=== PATIENT | female | born 1985 | race Caucasian/White ===

== ENCOUNTER 2017-01-30 21:00 | Emergency (ER) | payer OTHER ==
[~2017-01-30] VITALS: Ht 175.3 cm; Wt 158.8 kg
[~2017-01-30 21:00] MED LIST: AMITRIPTYLINE25 MG PO; AMOXICOT500 MG PO; APAP/BUTALBITAL1 TA1 PO; AVPAK AZITHROM250 MG PO; BACTRIM DS 8001 TAB PO; BENTYL20 MG PO; CELEXA40 MG PO; CIPRO 500MG TA500 MG PO; FLEXERIL10 MG PO; FLOVENT 44M13 GM/BOT IN; IBU800 M1 PO; KEFLEX 500MG.500 MG PO; MEDROL 4MG. DOSE4 MG PO; METOPROLOL SUCC25 M2 PO; MUCINEX600 MG PO; MULTI VITAMINS1 TA1 PO; Monodox100 MG PO; NAPROXEN SODIU500 MG PO; NOMEDS *; ORTHO TRI-CYCLE1 TA1 PO; PHENERGAN 25MG.25 M1 PO; PREDNISONE 10MG10 MG PO; PREDNISONE 20MG20 MG PO; PROMETHAZINE D120 ML PO; ROBAXIN-750750 MG PO; TESSALON PERLE100 M1 PO; TESSALON PERLE100 MG PO; ULTRAM 50 MG TA50 MG PO; VENTOLIN H0.09 MG/Ac IH; VICODIN 5/500 T1 TAB PO; VOLTAREN75 MG PO; ZESTRIL5 MG PO; ZITHROMAX Z PA250 MG PO; ZITHROMAX Z-PA250 M1 PO; ZYRTEC10 M2 PO
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
[2017-01-30 21:56] VITALS: BP 125/82
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
--- OUTSIDE RECORDS SUMMARY | 2017-02-02 18:42 | External Medical Summary Rpt ---
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 [address] [facility] T VISIT LOW/MODER SEVERITY HOSPITAL JOSE F - [address] [facility] INC T EMERGENCY 36352 JORDAN ESTEVEZ 6 6 PHYSICIAN LAKESHA Tapia [facility] T VISIT MODERATE SEVERITY EMERGENCY 01675 JOSE F 6 6 [facility] DEPARTMEN INC T VISIT LOW/MODER SEVERITY EMERGENCY 12262 [facility] DEPT 6 6 REGIONAL ADA VISIT HIGH EMERGENCY SEVERITY& THREAT FUNCJ EMERGENCY 34561 EDEN JUPITER SVEN 5 5 REGIONAL DEPARTMEN T VISIT EMERGENCY HIGH/URGE NT SEVERITY OFFICE 49521 [facility], АННА OUTPATIEN 5 5 ASTHMA & JAM T VISIT IMMUNOLOG 15 Y MINUTES OFFICE 34406 [facility] [place] OUTPATIEN 5 5 PHYSICIAN EUG T VISIT S GROUP 15 MINUTES OFFICE 84598 [facility] [place] OUTPATIEN 5 5 PHYSICIAN MARÍA T VISIT S GROUP 15 MINUTES OFFICE 61013 [facility] RUPINDER OUTPATIEN 5 5 PHYSICIAN LUCY T VISIT S GROUP 15 MINUTES OFFICE 00401 [facility] [place] OUTPATIEN 4 4 PHYSICIAN EUG T VISIT S GROUP 15 MINUTES PERIODIC 75051 [facility] PREVENTIV 4 4 PHYSICIAN E MED EST S GROUP PATIENT 18-39 YRS HOSPITAL JOSE F - 4 4 [facility] OUT[facility]EN [facility] JOSE F - 4 4 [facility] JOSE F - 4 4 [facility] JOSE F [facility] 4 4 [facility] OUTPATIEN [facility] OFFICE 79073 [facility] RUPINDER OUTPATIEN 4 4 PHYSICIAN LUCY T NEW 45 S GROUP MINUTES EMERGENCY 77535 [facility] DEPT 4 4 RACHEL LUCY VISIT EMERGENCY HIGH PHYS SEVERITY& THREAT FUNJ Emergency GERHARD Moran MD (ER) 3 13:32 3 14:[address] [facility] Emergency GERHARD Amado MD (ER) 3 22:07 3 22:37 [facility] JOSE F - 3 3 [facility] OUTPATIEN [facility] T EMERGENCY 84371 JOSE F 3 3 [facility] INC T VISIT LOW/MODER SEVERITY EMERGENCY 40273 NATAN GAMA 3 3 III CALEB III [facility] T VISIT HIGH/URGE NT SEVERITY EMERGENCY 04911 RUPINDER AMADO 2 2 [facility] HIGH/URGE NT SEVERITY EMERGENCY 69455 JOSE F 2 2 [facility] T VISIT LOW/MODER SEVERITY HOSPITAL JOSE F - 2 2 [facility] OUTPATIEN [facility] JOSE F - 2 2 [facility] JOSE F [facility] 2 2 [facility] T EMERGENCY 77280 NATAN GAMA 2 2 III CALEB III [facility] T VISIT HIGH/URGE NT SEVERITY EMERGENCY 66421 JOSE F 2 2 [facility] T VISIT LOW/MODER SEVERITY HOSPITAL JOSE F - 2 2 [facility] T EMERGENCY 59695 NATAN GAMA 2 2 III CALEB III [facility] T VISIT HIGH/URGE NT SEVERITY EMERGENCY 49541 JOSE F 2 2 [facility] INC T VISIT MODERATE SEVERITY EMERGENCY 96269 HESHAM NICE 2 2 EMERGENCY [facility] SERVICES T VISIT MODERATE SEVERITY EMERGENCY 74767 JOSE F 2 2 [facility] T VISIT LIMITED/M INOR PROB HOSPITAL JOSE F - 2 2 [facility] OUTPATIEN [facility] T HOSPITAL JOSE F - 2 2 [facility] OUTPATIEN [facility] T EMERGENCY 09468 JOSE F 2 2 [facility]PART[facility] INC T VISIT LOW/MODER SEVERITY EMERGENCY 08360 NATAN GAMA 2 2 III CAL[facility] III [facility] DEPARTMEN T VISIT HIGH/URGE NT SEVERITY OFFICE 21870 CHARLIE GUERRA OUTPATIEN 2 2 LORETO LORETO T VISIT 15 MINUTES OFFICE 67725 JOSE F KOHLER OUTPATIEN 2 2 [facility] CENTER 15 MINUTES EMERGENCY 95933 JOSE F 2 2 [facility] DEPART[facility] INC T VISIT LOW/MODER SEVERITY EMERGENCY 27005 RUPINDER AMADO 2 2 [facility] DEPARTMEN T VISIT HIGH/URGE NT SEVERITY HOSPITAL JOSE F - 2 2 [facility] T HOSPITAL JOSE F - 2 2 [facility] OUT[facility]EN INC T EMERGENCY 56112 NATAN GAMA 2 2 III [facility] III [facility] DEPARTMEN T VISIT MODERATE SEVERITY EMERGENCY 03174 JOSE F 2 2 [facility] INC T VISIT LOW/MODER SEVERITY OFFICE 50027 JOSE F KOHLER OUTPATIEN 2 2 [facility] CENTER 15 MINUTES HOSPITAL JOSE F - 2 2 [facility] OUTPATIEN INC T EMERGENCY 12930 JOSE F 2 2 [facility] DEPARTMEN INC T VISIT MODERATE SEVERITY HOSPITAL JOSE F - 2 2 [facility] OUTPATIEN INC T EMERGENCY 04525 NATAN GAMA DEPT 2 2 III CAL[facility] III [facility] VISIT HIGH SEVERITY& THREAT [facility] JOSE F - 2 2 [facility] OUTPAT[facility] INC T EMERGENCY 94436 HESHAM AMADO, 0 0 EMERGENCY [facility] SERVICES T 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 S EMERGENCY 05700 JOSE F 0 0 [facility] DEPART[facility] INC T VISIT MODERATE SEVERITY HOSPITAL JOSE F - 0 0 [facility] OUTPATIEN INC T EMERGENCY 35378 HESHAM AMADO, 0 0 EMERGENCY [facility] SERVICES T VISIT HIGH/URGE ASSOCIATE NT S SEVERITY EMERGENCY 77500 JOSE F 0 0 [facility] INC T VISIT LOW/MODER SEVERITY HOSPITAL JOSE F - [address] [facility] T EMERGENCY 55477 JOSE F 0 0 [facility] DEPARTMEN INC T VISIT LOW/MODER SEVERITY EMERGENCY 79562 HESHAM AMADO, 0 0 EMERGENCY [facility] SERVICES T VISIT HIGH/URGE ASSOCIATE NT S SEVERITY HOSPITAL JOSE F - 0 0 [facility] INC T HOSPITAL JOSE F - [address] [facility] T HOSPITAL JOSE F - [address] [facility] T HOSPITAL JOSE F - 9 9 [facility] OUTPAT[facility]EN [facility] T EMERGENCY 34667 HESHAM AMADO, 9 9 EMERGENCY [facility] SERVICES T 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 S EMERGENCY 48413 JOSE F [address] [facility] T VISIT LOW/MODER SEVERITY EMERGENCY 30845 JOSE F [address] [facility] T VISIT LIMITED/M [facility]OR [facility]OB [facility] JOSE F - 9 9 [facility] OUTPAT[facility] INC T EMERGENCY 56382 SHAGUFTA AMADO, 9 9 [facility] T VISIT ON LOW/MODER SEVERITY EMERGENCY 60825 JOSE F 8 8 [facility] DE[facility] INC T VISIT HIGH/URGE NT SEVERITY HOSPITAL JOSE F - [address] [facility] T OFFICE 21683 SIOMARA STEWARD 8 8 [facility] A T VISIT INTERNAL 25 MED MINUTES EMERGENCY 83448 JOSE F 8 8 [facility] T VISIT MODERATE SEVERITY HOSPITAL JOSE F 8 8 [facility] OUTPATIEN [facility] T OFFICE 53453 SIOMARA STEWARD 8 8 JONATHAN Webb T VISIT INTERNAL 15 MED MINUTES
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
--- OUTSIDE RECORDS SUMMARY | 2017-02-02 18:46 | External Medical Summary Rpt ---
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 15 MED MINUTES
--- OUTSIDE RECORDS SUMMARY | 2017-02-02 18:46 | External Medical Summary Rpt ---
Demographics Preferred Language German Marital Status Unknown Zoroastrian Affiliation Unknown Race Unknown Ethnic Group Unknown Author Author , MARIBELL COMBS Address Unknown Phone Immunization Unable to retrieve immunization data due to connection failure with Immunization Registry. Please try again later.
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
--- OUTSIDE RECORDS SUMMARY | 2017-02-02 18:46 | External Medical Summary Rpt ---
Demographics Preferred Language Gibraltarian Marital Status Unknown Jain Affiliation Unknown Race Unknown Ethnic Group Unknown Author Author , MARIBELL COMBS Address Unknown Phone Immunization Unable to retrieve immunization data due to connection failure with Immunization Registry. Please try again later.
--- OUTSIDE RECORDS SUMMARY | 2017-02-02 18:47 | External Medical Summary Rpt ---
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 data Monocyt 5.4 4.4 - % Normal No Jul 24 es (%) 11.0 informa 2015 (Auto) tion in 3:35 PM source data Eosinop 4.3 0.0 - % Normal No Jul 24 hils 5.8 informa 2016 (%) tion in 3:35 PM (Auto) source data Basophi 0.7 0 - 1.6 % Normal No Jul 24 ls (%) informa 2015 (Auto) tion in 3:35 PM source data Neutrop 5.6 1.8 - X_10_3 Normal No Jul 24 hils # 7.0 informa 2016 (Auto) tion in 3:35 PM source data Lymphoc 2.5 1.0 - X_10_3 Normal No Jul 24 ytes # 3.3 informa 2016 (Auto) tion in 3:35 PM source data Monocyt 0.5 0.3 - X_10_3 Normal No Jul 24 es # 0.9 informa 2016 (Auto) tion in 3:35 PM source data Eosinop 0.4 0.0 - X_10_3 Normal No Jul 24 hils # 0.5 informa 2016 (Auto) tion in 3:35 PM source data Basophi 0.1 0.0 - X_10_3 Normal If a Jul 24 ls # 0.2 manual 2016 (Auto) differe 3:35 PM ntial is indicat ed, submit order within4 8 hours"
--- OUTSIDE RECORDS SUMMARY | 2017-02-02 18:47 | External Medical Summary Rpt ---
[...] tion in tion in 8:42 AM BATTERY [employer] source source source source KIRA STOVER data data data data [place] 1 Visit Type : DEP ER\\.br\\ : [id number] Rm/Bed :\\.br\\A ge/Sex : 30/F\\.b r\\\\.br\\ Orderin g Physici an : Angel Coleman PAC Tech : [facility]\\ .br\\Acc ession # : [id number] Time In : 0004\\.b r\\Categ ory: [...] tion in tion in 8:41 AM [facility] source source source ER,KIRA data data data data MT 1 Visit Type : DEP ER\\.br\\ : [id number] Rm/Bed :\\.br\\A ge/Sex : 30/F\\.b r\\\\.br\\ Vianca edwards Physici an : Angel harding S [place] PAC Tech : Michael Azar\\ .br\\Acc ession # : [id number] Time In : 0005\\.b r\\Categ ory: [...] in tion in tion in 8:30 AM [employer]ing[employer] source source source source KIRA STOVER data data data data MT 1 Visit Type : DEP ER\\.br\\ : [id number] [id number] Rm/Bed :\\.br\\A ge/Sex : 30/F\\.b r\\\\.br\\ Orderin g Physici an : Angel phe S [place] PAC Tech : Michael Taj Azar\\ .br\\Acc ession # : [id number] Time In : 001\\.b r\\Categ ory: [...] tion in tion in 8:29 AM BATTERY [employer] source source source source KIRA STOVER data data data data MT 1 Visit Type : DEP ER\\.br\\ : [id number] Rm/Bed :\\.br\\A ge/Sex : 30/F\\.b r\\\\.br\\ Orderin g Physici an : Angel phe S [place] PAC Tech : Rosie P Jo-Ann \\.br\\Ac cession # : [id number] Time In : 2359\\.b r\\Categ ory: [...] tion in tion in 8:29 AM BATTERY [employer] source source source source CK,KIRA data data data data MT 1 Visit Type : DEP ER\\.br\\ : [phone] [id number] Rm/Bed :\\.br\\A ge/Sex : 30/F\\.b r\\\\.br\\ Orderin g Physici an : Angel phe S [place] PAC Tech : Luz kline J Katie\\ .br\\Acc ession # : [id number] Time In : 0014\\.b r\\Categ ory: [...] tion in tion in 8:28 AM BATTERY [employer] source source source source KIRA STOVER data data data data MT 1 Visit Type : DEP ER\\.br\\ : [phone] [id number] Rm/Bed :\\.br\\A ge/Sex : 30/F\\.b r\\\\.br\\ Orderin g Physici an : Angel phe S [place] PAC Tech : Skandia h J Katie\\ .br\\Acc ession # : [id number] Time In : 0017\\.b r\\Categ ory: [...] tion in tion in 8:28 AM BATTERY [employer] source source source source ER,KIMB data data data data MT 1 Visit Type : DEP ER\\.br\\ : 983 53277 Rm/Bed :\\.br\\A ge/Sex : 30/F\\.b r\\\\.br\\ Orderin g Physici an : Angel Tapia [place] PAC Tech : Michael Azar\\ .br\\Acc ession # : [id number] Time In : 0054\\.b r\\Categ ory: [...] in tion in tion in 8:24 AM [employer] source source source source KIRA STOVER data data data data MT 1 Visit Type : DEP ER\\.br\\ : 983 [id number] Rm/Bed :\\.br\\A ge/Sex : 30/F\\.b r\\\\.br\\ Orderin g Physici an : Angel phe S [place] PAC Tech : Luz Alejandra Katie\\ .br\\Acc ession # : [id number] Time In : 11\\.b r\\Categ ory: [...] in tion in tion in 8:01 AM P[employer] source source source source KIRA STOVER data data data data MT 1 Visit Type : DEP ER\\.br\\ : [phone] [id number] Rm/Bed :\\.br\\A ge/Sex : 30/F\\.b r\\\\.br\\ Orderin g Physici an : Angel phe S [place] PAC Tech : Luz kline J Katie\\ .br\\Acc ession # : [id number] Time In : 001\\.b r\\Categ ory: [...] Visit Type : REG ER\\.br\\ : 983 79706 Rm/Bed :\\.br\\A ge/Sex : 30/F\\.b r\\\\.br\\ Orderin g Physici an : Jorge mahajan MD Tech : Jennifer Tsang\\. br\\Acce ssion # : [id number] Time In : 1503\\.b r\\Categ ory: [...]
== END 2017-01-30 22:32 | disposition short-term general hospital (02) ==
LOC: ER 21:00
DX: S30.1XXA Contusion of abdominal wall, initial encounter (principal); S10.91XA Abrasion of unspecified part of neck, initial encounter; S10.93XA Contusion of unspecified part of neck, initial encounter; V89.2XXA Person injured in unspecified motor-vehicle accident, traffic, initial encounter